=== PATIENT | female | born 1975 | race Two or more races ===

== ENCOUNTER 2023-03-17 12:08 | Outpatient (CLI) | payer OTHER | END 2023-03-17 12:12 | disposition home or self-care (01) | LOC: RAD 12:08 | PROVIDERS: ATTEND Physical Medicine & Rehabilitation Pain Medicine | DX: M54.17 Radiculopathy, lumbosacral region (principal) ==

== ENCOUNTER 2023-05-19 13:31 | Outpatient (CLI) | payer OTHER | END 2023-05-19 13:39 | disposition home or self-care (01) | LOC: MRI 13:31 | PROVIDERS: ATTEND Pain Medicine Interventional Pain Medicine | DX: M54.50 Low back pain, unspecified (principal) | CPT/HCPCS: 72148 ==

== ENCOUNTER 2023-06-09 12:24 | Outpatient (CLI) | payer OTHER | END 2023-06-09 12:36 | disposition home or self-care (01) | LOC: RAD 12:24 | PROVIDERS: ATTEND Orthopaedic Surgery | DX: M48.061 Spinal stenosis, lumbar region without neurogenic claudication (principal) ==